=== PATIENT | female | born 1945 | race Caucasian/White ===

== ENCOUNTER 2016-12-09 14:13 | Emergency (ER) | payer OTHER ==
[2016-12-09 16:22] LABS: HEMOGLOBIN 12.5 gm/dl (12.3-15.3); RED BLOOD COUNT 4.36 M/UL (4.00-5.10); WHITE BLOOD COUNT 7.4 K/UL (4.5-11.0)
[2016-12-09 16:46] LABS: BUN/CREATININE RATIO 32 (0-10)
== END 2016-12-09 20:30 | disposition short-term general hospital (02) ==
LOC: ER1 14:13
PROVIDERS: Emergency Medicine
DX: R31.0 Gross hematuria (principal); I11.0 Hypertensive heart disease with heart failure; I50.30 Unspecified diastolic (congestive) heart failure; G20 Parkinson's disease; F02.80 Dementia in other diseases classified elsewhere, unspecified severity, without behavioral disturbance, psychotic disturbance, mood disturbance, and anxiety; E78.5 Hyperlipidemia, unspecified; Z88.0 Allergy status to penicillin
CPT/HCPCS: 80053; 81001; 85025; 85610; 85730; 86850; 86900; 86901; 87086; 96361; 96374; 99285; J1956